=== PATIENT | female | born 1970 | race American Indian/Alaskan Native ===

== ENCOUNTER 2016-12-04 13:00 | Emergency (ER) | payer SELFPAY ==
[2016-12-04] MEDS ORDERED: NACL 0.9% 500 ML 500 ML IV ONE (13:09)
[2016-12-04 13:42] LABS: Basophils % (Auto) 0.4 % (0.0-1.8); Eosinophils % (Auto) 0.7 % (0.0-4.3); Hematocrit 40.1 % (30.3-42.9); Hemoglobin 13.1 gm/dl (10.1-14.3); Mean Corpuscular HGB Conc 33 % (30-34); Mean Corpuscular Hemoglobin 30 pg (28-32); Mean Corpuscular Volume 90 fl (79-97); Platelet Count 301 K/mm3 (140-440); Red Blood Count 4.45 M/mm3 (3.65-5.03); Red Cell Distribution Width 13.8 % (13.2-15.2); White Blood Count 19.2 K/mm3 (4.5-11.0)
[2016-12-04 13:51] LABS: INR 1.01 (0.87-1.13)
[2016-12-04 13:52] LABS: Alanine Aminotransferase 11 units/L (7-56); Albumin 4.1 g/dL (3.9-5); Albumin/Globulin Ratio 1.1 %; Alkaline Phosphatase 88 units/L (35-129); Anion Gap 18 mmol/L; Blood Urea Nitrogen 10 mg/dL (7-17); Calcium 9.2 mg/dL (8.4-10.2); Carbon Dioxide 25 mmol/L (22-30); Chloride 99.4 mmol/L (98-107); Glucose 109 mg/dL (65-100); Potassium 3.7 mmol/L (3.6-5.0); Sodium 139 mmol/L (137-145); Total Protein 7.7 g/dL (6.3-8.2)
--- NOTE | 2016-12-04 14:15 | XRay Report ---
CHEST ONE VIEW INDICATION: Possible sepsis. COMPARISON: 10/18/2010. FINDINGS: Portable, single, frontal chest radiograph demonstrates normal cardiomediastinal silhouette. Clear lungs. Unremarkable bones. CONCLUSION: No acute disease in the chest. Thank you for the opportunity to participate in this patient's care.
[2016-12-04] MEDS ORDERED: NACL 0.9% 1000 ML 1,000 ML ONE (16:11)
[2016-12-04] MEDS ORDERED: TYLENOL PO ONE (17:00)
[2016-12-04] MEDS ORDERED: ROCEPHIN/NS 1 GM/50 ML 1 GM/50 ML BAG IV ONE (17:13)
[2016-12-04] MEDS ORDERED: CLEOCIN 600 MG/50 mL 600 MG/50 ML BAG IV ONE (17:13)
[2016-12-04] MEDS ORDERED: TORADOL IV ONE (17:13)
[2016-12-04 18:35] VITALS: BP 132/91
[2016-12-04 18:52] LABS: Bilirubin,Urine Negative (Negative); Blood,Urine Moderate (Negative); Ketones,Urine Negative (Negative)
[2016-12-04 18:53] LABS: Nitrite,Urine Negative (Negative); PH,Urine 6.5 (5.0-7.0); Urobilinogen,Urine < 2.0 mg/dL (<2.0)
[2016-12-04 18:54] LABS: Leukocyte Esterase,Urine Negative (Negative)
--- NOTE | 2016-12-04 18:56 | Admit Criteria Form ---
Admission Criteria Documentation: FEVER Clinical Indications for Inpatient Care (Place 'X' for any and all applicable criteria): Ongoing inpatient care may be indicated for fever with ANY ONE of the following[ D] (5)(27)(28)(29)(30)(31): [X ]I. Bacteremia [ ]II. Evidence of significant systemic illness as indicated by ANY ONE of the following: [ ]a) Persistently high temperatures greater than 103.1 degrees F ( 39.5 degrees C) (oral) [ ]b) New-onset hypoxia [ ]c) Hemodynamic instability [ ]d) Mental status changes [ ]e) Decreased urine output due to developing renal insufficiency [ ]f) New focal neurologic deficit (eg, stroke) [ ]g) Seizures [ ]h) Rigors [ ]i) Dehydration or hypovolemia [ ]j) Inadequate oral intake [ ]III. Patient in the immediate postoperative period with ANY ONE of the following (E)(23)(24): [ ]a) Evidence of specific localizing infection requiring ongoing inpatient evaluation or treatment (eg,abscess, severe pneumonia, wound infection ) [ ]b) Known or suspected cause of fever requiring ongoing inpatient evaluation or treatment (eg, DVT) [ ]c) Evidence of malignant hyperthermia (eg, unexplained tachycardia and muscle rigidity after depolarizing muscular blocking agent or inhaled anesthetic agent) [ ]IV. Suspected cause requiring acute care (eg, endocarditis, meningitis) [ ]V. High suspicion of bacteremia as indicated by severe constitutional symptoms in patient at high risk as indicated by ANY ONE of the following: [ ]a) Immunocompromised state [D](22) [ ]b) Age <3 years or >65 years [ ]c) Severe comorbidities (eg, poorly controlled diabetes, severe COPD) [ ]. High suspicion for fungal infection as indicated by ANY ONE of the following (22)(25): [ ]a) Febrile neutropenia (WBC <500/mm3 (0.5 X 109/L)) for >4 days despite broad spectrum antibiotics [ ]b) Imaging findings suggestive of fungal infection [ ]c) Immunocompromised state [ ]d) Immunocompromised patient colonized with Aspergillus species [ ]VII. Evidence of infection of medical devices such as implanted catheters or exposed hardware [ ]VIII. Suspected neuroleptic malignant syndrome as evidenced by ALL of the following (15): [ ]a) Recent use of neuroleptic medication (eg, haloperidol, prochlorperazine, metoclopramide) [ ]b) New-onset muscle rigidity Extended stay beyond goal length of stay for primary condition may be needed until ALL of the following are present(16)(17)(18)(19)(20)(21): [ ]a) Temperature status acceptable as indicated by ANY ONE of the following: [ ]i) Temp <38.1C (100.5 F) (oral) [ ]ii) Temp as expected for disease process and care performable at next level of care [ ]b) Hemodynamic stability [ ]c) Cultures negative or infection identified and under adequate treatment [ ]d) Behavior or mental status abnormalities absent or manageable at lower level of care (Also use Mental Status Change Criteria Form) for further information. [ ]e) Medical comorbidities absent or manageable at a lower level of care The original [facility] [employer] content created by [employer] has been revised. The portions of the content which have been revised are identified through the use of italic text or in bold, and [facility] has neither reviewed nor approved the modified material. All other unmodified content is copyright [employer]. Please see references footnoted in the original [employer] edition 2016
--- NOTE | 2016-12-04 20:11 | Emergency Department Report ---
HPI - General Chief Complaint: Chest Pain Time Seen by Provider: 12/04/16 16:54 - HPI HPI: The patient is a 46-year-old female presents for evaluation of left chest and axilla pain. The patient reports 2 days of progressive severe pain to the left axilla and chest, 10/10 in severity and constant for the past one day, burning and throbbing in quality, exacerbated with touching of the skin. She says that her symptoms began at the shaving under her arms, and developing a hair infection to the left exhibiting earlier this week. The patient denies fever, cough, syncope, dyspnea, hemoptysis, unilateral leg swelling, oral contraceptive use, recent immobilization, history of DVT or PE, recent cancer. ED Past Medical Hx - Social History Smoking Status: Never Smoker Substance Use Type: Alcohol - Medications Home Medications: Home Medications Medication Instructions Recorded Confirmed Last Taken Type Cephalexin [Keflex] 500 mg PO QID #40 capsule 12/04/16 Unknown Rx Clindamycin [Clindamycin CAP] 300 mg PO TID #30 capsule 12/04/16 Unknown Rx HYDROcodone/APAP 7.5-325 [Story 1 each PO Q8HR PRN #20 tablet 12/04/16 Unknown Rx 7.5/325] ED Review of Systems ROS: Stated complaint: CHEST PAIN Other details as noted in HPI Constitutional: denies: fever ENT: denies: throat or neck pain Respiratory: denies: cough, shortness of breath Cardiovascular: reports chest pain Endocrine: denies unexplained weight loss or gain Gastrointestinal: denies: abdominal pain, nausea Genitourinary: denies: dysuria Musculoskeletal: denies: leg swelling Skin: denies: rash Neurological: denies: headache Hematological/Lymphatic: denies: easy bleeding or easy bruising Psych: denies sadness or hopelessness Physical Exam - Physical Exam Vital Signs: Vital Signs 12/04/16 12/04/16 12/04/16 13:02 15:57 18:35 Temperature 99.6 F 100.6 F H 99.9 F H Pulse Rate 125 H 105 H 90 Respiratory 22 16 16 Rate Blood Pressure 148/87 Blood Pressure 136/89 132/91 [Left] O2 Sat by Pulse 100 100 95 Oximetry Physical Exam: General: well-nourished, well-developed, no acute distress Head: Normocephalic, atraumatic Eyes: normal sclera ENT: Mucous membranes are pink and moist Neck: trachea midline, neck supple, No neck stiffness, no cervical adenopathy Respiratory: Breath sounds equal bilaterally, no wheezing, rales, or rhonchi Cardio: S1 and S2 present, no murmurs, rubs, gallops, capillary refill is brisk Abdomen: Normoactive bowel sounds, soft abdomen, no rigidity, no guarding or rebound tenderness Chest WALL/Back: + tenderness to palpation of the left axilla and left lateral chest wall, erythema present as well, no fluctuance, crepitus, swelling, no sign of abscess Musc: No pitting edema Skin: No rash Neuro: no facial drooping, normal speech Psych: Normal affect ED Course Vital Signs 12/04/16 12/04/16 12/04/16 13:02 15:57 18:35 Temperature 99.6 F 100.6 F H 99.9 F H Pulse Rate 125 H 105 H 90 Respiratory 22 16 16 Rate Blood Pressure 148/87 Blood Pressure 136/89 132/91 [Left] O2 Sat by Pulse 100 100 95 Oximetry ED Medical Decision Making - Lab Data Result diagrams: 12/04/16 13:18 12/04/16 13:18 - Medical Decision Making The patient was seen and examined by myself. The patient is placed on a sander portable machine and continuous pulse ox. On initial evaluation, the patient was found to be in no distress. Evaluation orders were placed. The patient is given a tablet of Tylenol for fever, and IV Toradol for pain. X-ray of the chest is negative for acute cardiopulmonary disease process. Lab results revealed leukocytosis of 19, and otherwise labs were not concerning including normal troponin level and BNP. The patient is given IV clindamycin and Rocephin for treatment of acute cellulitis. The patient was reevaluated and reported that their symptoms were markedly improved. On reexamination the patient's elevated temperature has decreased to within normal limits of 99F. The patient is stable for discharge with outpatient follow-up. The patient is given follow-up and return instructions. The patient expressed understanding and agreed with the plan. The patient is discharged in stable condition. Critical care attestation.: If time is entered above; I have spent that time in minutes in the direct care of this critically ill patient, excluding procedure time. ED Disposition Clinical Impression: Cellulitis of chest wall, Acute chest pain Disposition: TO HOME OR SELFCARE Is pt being admited?: No Does the pt Need Aspirin: No Condition: Stable Instructions: Cellulitis (ED), Chest Pain (ED) Prescriptions: Cephalexin [Keflex] 500 mg PO QID #40 capsule Clindamycin [Clindamycin CAP] 300 mg PO TID #30 capsule HYDROcodone/APAP 7.5-325 [Story 7.5/325] 1 each PO Q8HR PRN #20 tablet PRN Reason: Pain Referrals: PRIMARY CARE,MD [Primary Care Provider] - 3-[address] [facility] [Outside] - 3-5 Days Time of Disposition: 20:09
== END 2016-12-04 20:25 | disposition home or self-care (01) ==
LOC: ED 13:00
DX: L03.313 Cellulitis of chest wall (principal); R07.9 Chest pain, unspecified
CPT/HCPCS: 36415; 71010; 80053; 81001; 82140; 82805; 83880; 84484; 84703; 85025; 85610; 87040; 87086; 93005; 93010; 96361; 96365; 96368; 96375; 99284; J0696; J1885; J7030